=== PATIENT | female | born 1935 | race Caucasian/White ===

== ENCOUNTER 2022-12-25 18:15 | Inpatient (IN) | payer MEDICARE ==
[~2022-12-25] VITALS: Ht 154.9 cm; Wt 53.5 kg
--- NOTE | 2022-12-25 18:19 | NUR ---
BIBA BLS TO ER BED 7
[2022-12-25 18:23] VITALS: BP 131/59
--- NOTE | 2022-12-25 18:25 | NUR ---
87YO FEMALE PT BIB[facility] D/T ABNORMAL LABS. PER FACILITY - POTASSIUM 2.9 CALCIUM 6.9 AND STATE PT COVID+ X4DAYS. PT DENIES N/V/D, CHEST PAIN, FEVER, CHILLS OR SOB. PT AAOX4, ON PROFESSOR OF PHILOSOPHY HX: HTN, CKD NKA
--- NOTE | 2022-12-25 18:46 | NUR ---
lab at bedside
--- NOTE | 2022-12-25 18:59 | NUR ---
MD NEWSOME AT BEDSIDE FOR EVALUATION
--- NOTE | 2022-12-25 19:05 | NUR ---
xray at bedside
[2022-12-25 19:08] LABS: BASOPHILS # (AUTO) 0.1 K/uL (0.00-0.22); BASOPHILS % (AUTO) 1.3 % (0.0-2.0); EOSINOPHILS # (AUTO) 0.1 K/uL (0-0.4); EOSINOPHILS % (AUTO) 1.1 % (0.0-4.0); HEMATOCRIT 32.7 % (36-48); HEMOGLOBIN 10.8 g/dL (12.0-16.0); LYMPHOCYTES # (AUTO) 1.2 K/uL (2.5-16.5); LYMPHOCYTES % (AUTO) 12.4 % (20.5-51.1); MEAN CORPUSCULAR HEMOGLOBIN 30 pg (27-31); MEAN CORPUSCULAR HGB CONC 33 g/dL (33-37); MEAN CORPUSCULAR VOLUME 89.5 fL (80-94); MONOCYTES # (AUTO) 0.3 K/uL (0.8-1.0); MONOCYTES % (AUTO) 2.8 % (1.7-9.3); NEUTROPHILS # (AUTO) 8.1 K/uL (1.8-7.7); NEUTROPHILS % (AUTO) 82.4 % (42.2-75.2); PLATELET COUNT (AUTO) 344 K/uL (140-450); RED BLOOD CELL COUNT(AUTO) 3.65 MIL/uL (4.20-5.40); RED CELL DISTRIBUTION WIDTH 17.6 % (11.6-13.7); WHITE BLOOD COUNT (AUTO) 9.9 K/uL (4.8-10.8)
--- NOTE | 2022-12-25 19:20 | NUR ---
REPORT GIVEN TO BLANCA LOZA. TRANSFER OF CARE AT THIS TIME
[2022-12-25 19:25] LABS: ALBUMIN 2.2 g/dL (3.4-5.0); ANION GAP 20.5 (8-16); ASPARTATE AMINOTRANSFERASE 22 U/L (15-37); CARBON DIOXIDE 19.3 mmol/L (21-32); CHLORIDE 113 mmol/L (98-107); CREATININE 3.4 mg/dL (0.6-1.3); GLUCOSE 66 mg/dL (74-106); MAGNESIUM 1.8 mg/dL (1.8-2.4); SODIUM SERUM 150 mmol/L (136-145); TOTAL BILIRUBIN 0.4 mg/dL (0.0-1.0); UREA NITROGEN, BLOOD 52 mg/dL (7-18)
[2022-12-25 19:30] LABS: POTASSIUM 2.8 mmol/L (3.5-5.1)
[2022-12-25] MEDS ORDERED: LACTATED RINGERS 1,000 ML IV ONE (19:40)
[2022-12-25] MEDS ORDERED: KCL 20 MEQ IN 100 mL PREMIX 200 ML IV ONE (19:40)
--- NOTE | 2022-12-25 20:05 | NUR ---
PT TO BE ADMITTED TO HOSPITAL. PENDINGING ORDERS . PT AWARE
--- NOTE | 2022-12-25 20:06 | NUR ---
PT RESTING IN BED WITH HOB ELEVATED. DENIES PAIN AT THIS TIME. PT IS COVID POS. FACAIL MASK ON PT. 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 DENIES CP OR SOB. SP02 97% RA. PT IS TO BE ADMITTED TO HOSPITAL. A&OX4. SKIN IN TACT WARM AND DRY. 22G IV CATH PLACED IN R AC. NKDA
[2022-12-25] MEDS ORDERED: HYDROcodone/APAP 5/325 MG 1 TAB TAB PO PRN (22:00)
[2022-12-25] MEDS ORDERED: ACETAMINOPHEN 325 MG TAB PO PRN (22:00)
[2022-12-25] MEDS ORDERED: TEMAZEPAM 15 MG CAP PO PRN (22:00)
[2022-12-25] MEDS ORDERED: HYDROcodone/APAP 10/325 MG 1 TAB TAB PO PRN (22:00)
[2022-12-25] MEDS ORDERED: ONDANSETRON 4 MG/2 ML VIAL IVP PRN (22:00)
[2022-12-25] MEDS: NACL 0.9% 1,000 ML IV SCH (22:00)
--- NOTE | 2022-12-25 22:54 | NUR ---
COVID SWAB COLLECTED AND SENT
[2022-12-25] MEDS ORDERED: OSC500 PO (23:05)
[2022-12-25] MEDS ORDERED: MAGN400S60 PO (23:10)
[2022-12-25] MEDS ORDERED: PANT40EC PO (23:10)
[2022-12-25] MEDS ORDERED: METO25TA PO (23:10)
[2022-12-25] MEDS ORDERED: ACET-8905 PO (23:10)
[2022-12-25] MEDS ORDERED: BISA-213 RC (23:10)
[2022-12-25] MEDS ORDERED: LIDO1ADH47 TP (23:10)
[2022-12-25] MEDS ORDERED: FERR325E14 PO (23:10)
[2022-12-25] MEDS ORDERED: SEN30 PO (23:10)
[2022-12-25] MEDS ORDERED: SODI650T2 PO (23:10)
[2022-12-25] MEDS ORDERED: FOLI2000 PO (23:10)
--- NOTE | 2022-12-26 00:22 | NUR ---
PT RESTING WITH HOB ELEVATED. ON BEDSIDE MARKETING SERVICES VICE PRESIDENT. SP02 98% RA . PT DENIES PAIN AT THIS TIME. DENIES SOB OR CP. RESP EVEN AND UNLABORED. PT IS A TELE HOLD . PENDING BED ASSIG. AT BEDSIDE
--- NOTE | 2022-12-26 05:52 | NUR ---
PT RADHA UPPER ARMS SWOLLEN AROUND ELBOW AREA. DENIES PAIN. PT STATES SHE HAD A SCRATCH FROM HER NAIL TO L UPPER FOREARM. SWELLING STARTED 2 DAYS GO.
[2022-12-26 07:08] LABS: ALBUMIN 2.1 g/dL (3.4-5.0); ANION GAP 19.7 (8-16); ASPARTATE AMINOTRANSFERASE 25 U/L (15-37); CARBON DIOXIDE 18.5 mmol/L (21-32); CHLORIDE 114 mmol/L (98-107); GLUCOSE 58 mg/dL (74-106); POTASSIUM 3.2 mmol/L (3.5-5.1); SODIUM SERUM 149 mmol/L (136-145); TOTAL BILIRUBIN 0.4 mg/dL (0.0-1.0); UREA NITROGEN, BLOOD 50 mg/dL (7-18)
[2022-12-26] MEDS ORDERED: ACETAMINOPHEN 325 MG TAB PO PRN (07:20)
[2022-12-26 07:33] LABS: BASOPHILS # (AUTO) 0.1 K/uL (0.00-0.22); BASOPHILS % (AUTO) 1.4 % (0.0-2.0); EOSINOPHILS # (AUTO) 0.1 K/uL (0-0.4); EOSINOPHILS % (AUTO) 1.5 % (0.0-4.0); HEMATOCRIT 27.4 % (36-48); HEMOGLOBIN 9.3 g/dL (12.0-16.0); LYMPHOCYTES # (AUTO) 1.3 K/uL (2.5-16.5); LYMPHOCYTES % (AUTO) 15.8 % (20.5-51.1); MEAN CORPUSCULAR HEMOGLOBIN 30 pg (27-31); MEAN CORPUSCULAR HGB CONC 34 g/dL (33-37); MEAN CORPUSCULAR VOLUME 88.1 fL (80-94); MONOCYTES # (AUTO) 0.2 K/uL (0.8-1.0); MONOCYTES % (AUTO) 2.8 % (1.7-9.3); NEUTROPHILS # (AUTO) 6.5 K/uL (1.8-7.7); NEUTROPHILS % (AUTO) 78.5 % (42.2-75.2); PLATELET COUNT (AUTO) 346 K/uL (140-450); RED BLOOD CELL COUNT(AUTO) 3.11 MIL/uL (4.20-5.40); RED CELL DISTRIBUTION WIDTH 17.2 % (11.6-13.7); WHITE BLOOD COUNT (AUTO) 8.3 K/uL (4.8-10.8)
[2022-12-26 08:00] VITALS: BP 133/61
--- NOTE | 2022-12-26 08:30 | NUR ---
RECEIVED REPORT FROM ER NURSE FOR CONTINUITY OF CARE. PT IS STABLE AT THIS TIME AND ALSO UPON TRANSPORT. PT IS A&OX4, BEDREST AT THIS TIME BUT PT WALKS AT FACILITY, GIOVANI WICK IN PLACE, AND SKIN HAS BRUISING ALL OVER. PT HAD A POTASSIUM OF 3.2. PT HAS A 24G IV IN HER R HAND THAT IS SALINE LOCKED. ALL SAFETY MEASURES IN PLACE INCLUDING BED IN LOW POSITION AND CALL LIGHT WITHIN REACH. CONTINUATION OF MOTORING AND CARE.
--- NOTE | 2022-12-26 09:07 | NUR ---
PATIENT HAS BEEN SCREENED AND CATEGORIZED MODERATE NUTRITION RISK. PATIENT WILL BE SEEN WITHIN 3-5 DAYS OF ADMISSION. REVIEWED BY AZEB SAUCEDO RD
[2022-12-26] MEDS ORDERED: POTASSIUM CHLORIDE 40 MEQ, LIDOCAINE 1% 25 MG in NACL 0.9% 250 ML IV SCH (10:00)
[2022-12-26] MEDS: NACL 0.9% 1,000 ML IV SCH ×3 (11:02→21:16)
[2022-12-26] MEDS: amLODIPine 5 MG TAB PO SCH (11:02)
--- NOTE | 2022-12-26 11:35 | NUR ---
Patient will be admitted to care of Dr Rose. Admited to telemetry. Will go to room 113. Belongings list completed. Report to Mari JONES.
[2022-12-26 12:00] VITALS: BP 109/58
--- NOTE | 2022-12-26 12:45 | NUR ---
DC PLANNING ASSESSMENT COMPLETE PLEASE REFER TO ASSESSMENT FOR ADDITIONAL DETAILS TORRES ESCOBAR DC PLAN IS FOR PT TO RETURN TO [facility] TO RESUME SKILLED CARE, ONCE CLINICALLY STABLE. Addendum: 12/26/22 at 1246 by Alysha Michael SS Amended: Links added.
[2022-12-26 16:00] VITALS: BP 94/48
--- NOTE | 2022-12-26 19:15 | NUR ---
ENDORSED TO SEARCH STRATEGIST NURSE FOR CONTINUITY OF CARE. PT STABLE AT THIS TIME.
[2022-12-26 20:00] VITALS: BP 111/55
[2022-12-27] VITALS: BP 109/48
[2022-12-27] MEDS: HYDROcodone/APAP 5/325 MG 1 TAB TAB PO PRN ×2 (03:04→15:43)
--- NOTE | 2022-12-27 03:15 | NUR ---
0237 Pt was found on the floor near her bed. Pt said that she was trying to go to rest room. Pt was cleaned and was assisted back to bed by 3 persons including the charge nurse. On Assessment, pt said martin she got weak on her legs and she fell. No sign of fracture noted or bleeding noted.Pt admitted to lower back , left ribcage pain. She said that had headache prior to fall. Martin t she forgot to use the call light and she thought that she was strong enough to doit by herself. Dr Rose notified, order to give tylenol or norco noted.Vital signs checked and AWL. Pt received [place]. Pt re educated on use of call light. Bed alarn reset and frequent rounding continued.Pt encouraged to always call for assistance and also reminded that she has pure wick on. Pt resting in bed at this time.
[2022-12-27 04:00] VITALS: BP 126/57
[2022-12-27] MEDS: NACL 0.9% 1,000 ML IV SCH (05:58)
[2022-12-27 08:00] VITALS: BP_SYST 125; BP_SYST 159; BP_DIAS 68; BP_DIAS 86
[2022-12-27] MEDS: amLODIPine 5 MG TAB PO SCH (10:29)
[2022-12-27 12:00] VITALS: BP 146/68
[2022-12-27 12:17] LABS: BASOPHILS # (AUTO) 0.1 K/uL (0.00-0.22); BASOPHILS % (AUTO) 1.4 % (0.0-2.0); EOSINOPHILS # (AUTO) 0.1 K/uL (0-0.4); EOSINOPHILS % (AUTO) 1.6 % (0.0-4.0); HEMATOCRIT 30.2 % (36-48); HEMOGLOBIN 9.9 g/dL (12.0-16.0); LYMPHOCYTES % (AUTO) 11.3 % (20.5-51.1); MEAN CORPUSCULAR HEMOGLOBIN 29 pg (27-31); MEAN CORPUSCULAR HGB CONC 33 g/dL (33-37); MEAN CORPUSCULAR VOLUME 89.7 fL (80-94); MONOCYTES # (AUTO) 0.2 K/uL (0.8-1.0); MONOCYTES % (AUTO) 2.7 % (1.7-9.3); NEUTROPHILS # (AUTO) 7.5 K/uL (1.8-7.7); PLATELET COUNT (AUTO) 326 K/uL (140-450); RED BLOOD CELL COUNT(AUTO) 3.36 MIL/uL (4.20-5.40); RED CELL DISTRIBUTION WIDTH 18.2 % (11.6-13.7)
[2022-12-27 12:43] LABS: ALBUMIN 2.3 g/dL (3.4-5.0); ANION GAP 19.2 (8-16); ASPARTATE AMINOTRANSFERASE 26 U/L (15-37); CARBON DIOXIDE 18.2 mmol/L (21-32); CHLORIDE 117 mmol/L (98-107); CREATININE 2.9 mg/dL (0.6-1.3); GLUCOSE 62 mg/dL (74-106); POTASSIUM 3.4 mmol/L (3.5-5.1); SODIUM SERUM 151 mmol/L (136-145); TOTAL BILIRUBIN 0.4 mg/dL (0.0-1.0); UREA NITROGEN, BLOOD 50 mg/dL (7-18)
[2022-12-27] MEDS ORDERED: POTASSIUM CHLORIDE 10 MEQ in DEXTROSE 5% 1,000 ML IV SCH (13:55)
[2022-12-27] MEDS: POTASSIUM CHL 20 MEQ / DEXT 5% 1,000 ML IV SCH (14:09)
--- NOTE | 2022-12-27 15:28 | NUR ---
RECEIVE CALL FROM PATIENT'S DAUGHTER WHO STATE THAT PATIENT RECENT DIAGNOSIS WITH C.DIFF, REQUEST ORDER PRO-BIOTIC. NURSE TALK TO COMPLIANCE TESTER WHO CARES PATIENT. PER COMPLIANCE TESTER, PATIENT HAS 1 SOFT BUT NOT FORMED BM TODAY THAT DOESN'T SMELLING LIKE TYPICAL C.DFF STOOL. WILL CONTINUE TO MONITOR Addendum: 12/27/22 at 1933 by Yamile Vines RN ENDORSE PATIENT IN STABLE CONDITION TO PM SHIFT NURSE WHILE PATIENT'S NEW IV D5 20MEQKCL INFUSING AT 75ML/HR VIA PIV SITE
[2022-12-27 16:00] VITALS: BP 109/53
--- NOTE | 2022-12-27 19:50 | NUR ---
PER KAREN QUINN THE PT'S FAMILY INFORMED HER ABOUT THE PT HAD DX W/ C DIFF WHEN SHE WAS IN [facility]
[2022-12-27 20:30] VITALS: BP 110/60
--- NOTE | 2022-12-27 20:31 | NUR ---
JAI HERNANDEZ C/O SLIGHTLY , SHE IS ON RA , O2 SAT 94 TO 94 % - PUT PT ON 2LPM/ NC - INFORM RT . WILL CONT. TO MONITOR Addendum: 12/28/22 at 0131 by Philly Capone RN AT 2030 WHEN PT HAS O2 AT 2LPM/NC - THE O2 SAT BCK UP TO 100 % - WILL CONT. TO MONITOR
--- NOTE | 2022-12-27 22:00 | NUR ---
ROUNDS , NO S/SX OF ACUTE DISTRESS NOTED , O2 SAT 97 % - WILL CONT. TO MONITOR .
[2022-12-28] VITALS: BP 111/56
--- NOTE | 2022-12-28 | NUR ---
ROUNDS , SLEEPING , BUT EASILY AROUSABLE BY SOUNDS , O2 SAT 97 % , WILL CONT. TO MONITOR
[2022-12-28 04:00] VITALS: BP 113/58
[2022-12-28] MEDS: POTASSIUM CHL 20 MEQ / DEXT 5% 1,000 ML IV SCH (05:26)
--- NOTE | 2022-12-28 05:46 | NUR ---
FOUND PUREWICK DETACHED TO THE TUBING , THE PUREWICK STAIN WITH STOOL - WILL CHANGE THE PUREWICK AND WILL CONNECT IT . HAS BM LIKE A TEJINDER IN [facility] , BUT FISHY ODOR AND FOUL ODOR , INFORM THE CHARGE NURSE PT HAD HX OF C DIFF , PER [address] NURSE LET THE AM NURSE ASK IF MD WANTS TO ORDER C DIFF STOOL , BUT CONT. TO MONITOR IF PT HAS DIARRHEA . - WILL ENDORSE . BP 101 / 59 , HR 98 , O2 SAT 98 % . 98.7 F AWAKE .
[2022-12-28 07:03] LABS: CARBON DIOXIDE 19.5 mmol/L (21-32); CHLORIDE 116 mmol/L (98-107); CREATININE 2.9 mg/dL (0.6-1.3); GLUCOSE 112 mg/dL (74-106); POTASSIUM 3.5 mmol/L (3.5-5.1); SODIUM SERUM 148 mmol/L (136-145); UREA NITROGEN, BLOOD 50 mg/dL (7-18)
--- NOTE | 2022-12-28 07:22 | NUR ---
endorsed pt for cont. of care , awake , o2 sat 97 %
[2022-12-28 08:00] VITALS: BP 121/59
--- NOTE | 2022-12-28 08:00 | NUR ---
Received in no acute distress. All safety measures in place. O2 sat at 95%, on 2l/nc. incontinent of urine, kept clean and dry
[2022-12-28] MEDS: amLODIPine 5 MG TAB PO SCH (09:23)
--- NOTE | 2022-12-28 10:30 | NUR ---
Dr. Garcia here and gave an order to discharge patient to [facility]. updated with discharge order. Patient in no acute distress. BP Vss
--- NOTE | 2022-12-28 12:47 | NUR ---
RECEIVED ORDER FOR PATIENT TO GO BACK TO SNF TO CONTINUE PHYSICAL THERAPY. [facility] AND SPOKE WITH MEGHAN WHO IS WAITING FOR AUTH BEFORE BED AND DR IS GIVEN BUT WILL TAKE PATIENT BACK. CALLED GABBIE FROM [facility] 6 TIME WITH NO ANSWER AND LEFT 3 VOICE MAILS. CALLED ATIYA FROM [facility] TWICE WITH NO ANSWER WELL. RECEIVED CALL FROM GABBIE AT [facility] WHO WANT PT NOTES FAXED OVER FOR AUTH. PT WAS PUT IN AT 1250. WILL FOLLOW UP WILL UPDATES. Addendum: 12/28/22 at 1452 by Christel Willis RN DC PLANNING FAXED THE PT EVALUATION TO [facility] AWAITING FOR GABBIE TO CALL BACK WITH AUTHORIZATION. CM TO FOLLOW Addendum: 12/28/22 at 1547 by Christel Willis RN DC PLANNING: RECEIVED A CALL FROM GABBIE AT [facility] PROVIDE THE AUTH FOR [facility] [id number] . PATIENT CAN GO TO [facility] ROOM # 20A # TO GIVE REPORT [phone] ARRANGED TRANSPORT WITH [facility] NOTIFIED THAT PATIENT IS COVID POSITIVE. LATHE TURNER TIME BETWEEN 5:30 TO 6 PM NOTIFIED MUKESH JONES. ERUM TO FOLLOW
--- NOTE | 2022-12-28 15:58 | NUR ---
12/28/22 RD INITIAL ASSESSMENT COMPLETED PLEASE REFER TO NUTRITION ASSESSMENT UNDER CARE ACTIVITY FOR ESTIMATED NUTRITIONAL NEEDS. 1. CONTINUE RENAL DIET TOLERATED 2. MONITOR GI, PO INTAKE, NUTRITION RELATED LAB VALUES. 3. RD TO FOLLOW-UP 3-5 DAYS, MODERATE RISK REVIEWED BY AZEB SAUCEDO RD
--- NOTE | 2022-12-28 16:18 | NUR ---
rEPORT GIVEN TO Giorgi Cortes [facility]
--- NOTE | 2022-12-28 17:00 | NUR ---
pATIENT DISCGARGED TO [facility] IN NO ACUTE DISTRESS VIA AMBULANCE PERSONNEL. Rogerio ALSO WITH PATIENT AT THIS TIME
== END 2022-12-28 17:20 | DRG 682 ==
LOC: MED 18:15 → MTU 22:14 → OBSVTOIN 22:14 → MTU 12-26 07:21
PROVIDERS: ADMIT Internal Medicine; ATTEND Internal Medicine
DX: N17.0 Acute kidney failure with tubular necrosis (principal); E43 Unspecified severe protein-calorie malnutrition; U07.1 COVID-19; E87.0 Hyperosmolality and hypernatremia; J90 Pleural effusion, not elsewhere classified; J81.1 Chronic pulmonary edema; E87.6 Hypokalemia; E86.1 Hypovolemia; I10 Essential (primary) hypertension; Z98.891 History of uterine scar from previous surgery; Z68.22 Body mass index [BMI] 22.0-22.9, adult
CPT/HCPCS: 36415; 71045; 76770; 80048; 80053; 82330; 83735; 84100; 84484; 85025; 87081; 96365; 97163-GP; 97530; 99285; J2001; J3480; J7030; J7070; Q0092